=== PATIENT | female | born 1930 | race Caucasian/White ===

== ENCOUNTER 2017-01-01 05:59 | Day surgery (SDC) | payer MEDICARE, MEDICAID ==
[~2017-01-01] VITALS: Ht 142.2 cm; Wt 40.9 kg
[2017-01-01] MEDS ORDERED: RINGERS SOLUTION,LACTATED 500 ML IV ONE ×2 (06:14→06:45)
[2017-01-01] MEDS ORDERED: TETRACAINE HCL/PF 0.5% 4 ML OPHTHALMIC SOLUTION ONE (06:14)
[2017-01-01] MEDS ORDERED: ACETAMINOPHEN/CODEINE 300-30 MG TABLET PO PRN (06:15)
[2017-01-01] MEDS ORDERED: MitoMYcin 0.2 MG/VIAL KIT FOR OPHTHALMIC USE OD ONE (06:15)
[2017-01-01] MEDS ORDERED: OLOP2.5D OP (06:32)
[2017-01-01] MEDS ORDERED: FLU15OS OP (06:32)
[2017-01-01] MEDS ORDERED: LOSA100T29 PO (06:32)
[2017-01-01] MEDS: TETRACAINE HCL/PF 0.5% 4 ML OPHTHALMIC SOLUTION OD SCH ×2 (07:09→07:18)
[2017-01-01] MEDS ORDERED: POVIDONE-IODINE 10% 15 ML SOLUTION UD TP ONE (17:35)
[2017-01-01] MEDS ORDERED: TETRACAINE HCL/PF 0.5% 4 ML OPHTHALMIC SOLUTION OS ONE (17:35)
[2017-01-01] MEDS ORDERED: LIDOCAINE HCL 2%/EPI 1:200,000/PF 10 ML VIAL IM ONE (17:35)
[2017-01-01] MEDS ORDERED: TETRACAINE HCL VISCOUS 0.5% 5 ML OPHTHALMIC SOLUTION OS ONE (17:35)
== END 2017-01-01 10:20 | disposition home or self-care (01) ==
LOC: SURGERY 05:59
PROVIDERS: ATTEND Ophthalmology
DX: H11.001 Unspecified pterygium of right eye (principal); I10 Essential (primary) hypertension; Z98.890 Other specified postprocedural states
CPT/HCPCS: 65426; 88304; 93005; C1768; J3490; J7120